=== PATIENT | female | born 1975 | race Caucasian/White ===

== ENCOUNTER 2017-03-13 01:07 | Emergency (ER) | payer OTHER ==
[~2017-03-13] VITALS: Ht 162.6 cm; Wt 63.5 kg
--- NOTE | 2017-03-13 01:20 | ED MVC/FALL/TRAUMA COMPLAINT ---
History of Present Illness General Chief Complaint: Fall Stated Complaint: RIGHT EYE BRUISE S/P FALL Source: patient, family Exam Limitations: no limitations Vital Signs & Intake/Output Vital Signs & Intake/Output Vital Signs Date Time Temp Pulse Resp B/P B/P Pulse O2 O2 Flow FiO2 Mean Ox Delivery Rate 03/13 0444 98.1 113 18 134/88 96 Room Air 03/13 0126 97.0 125 16 145/102 97 Room Air Allergies Coded Allergies: MDX - SULFA (sulfonamide) (SULFA (sulfonamide)) (UNKNOWN 08/23/12) MDX - Sulfur (UNKNOWN 08/23/12) Uncoded Allergies: Allergy Other GRASS,TREES,DUST,MOLD CLASS: 84:28 - KERATOLYTIC AGENTS (07/31/05) Reconcile Medications Prednisone 20 MG TABLET 1 TAB PO DAILY ANTI-INFLAMMATORY (Reported) Triage Nurses Notes Reviewed? yes Onset: Abrupt Duration: minute(s): Timing: recent history Severity: moderate Injuries/Fall Location: head, right noa-orbit Method of Injury: fall Loss of Consciousness: no loss of consciousness Modifying Factors: Improves With: rest. Associated Symptoms: swelling around right noa-orbit HPI: 41 yo woman h/o ulcerative colitis, on prednisone presents after a fall in the bathroom. She shares that she tripped on a box and hit her right eye on the toilet. She did not lose consciousness, and notes increased swelling around right eye. No vision loss. She notes no other injury or pain. Past History Travel History Traveled to [place] past 21 day No Medical History Any Pertinent Medical History? see below for history Gastrointestinal: colitis Surgical History Surgical History: none Psychosocial History What is your primary language Czech Family History Hx Contributory? No Review of Systems Review of Systems Constitutional: Reports: no symptoms. Eyes: Reports: no symptoms. Ears, Nose, Throat, Mouth: Reports: no symptoms. Respiratory: Reports: no symptoms. Cardiovascular: Reports: no symptoms. Gastrointestinal/Abdominal: Reports: no symptoms. Genitourinary: Reports: no symptoms. Musculoskeletal: Reports: no symptoms. Skin: Reports: no symptoms. Neurological/Psychological: Reports: no symptoms. All Other Systems: Reviewed and Negative Physical Exam Physical Exam General Appearance: well developed/nourished, anxious, mild distress Head: right noa-orbit with eccymosis, mild tenderness at maxillary sinus. Eyes: Bilateral: normal appearance, PERRL, EOMI. Ears, Nose, Throat, Mouth: hearing grossly normal, moist mucous membrane Neck: normal inspection, supple, full range of motion Respiratory: normal breath sounds, chest non-tender, no respiratory distress, quiet respiration, lungs clear Cardiovascular: regular rate/rhythm Gastrointestinal: normal bowel sounds, soft, non-tender, no organomegaly Back: normal inspection, normal range of motion Extremities: normal range of motion Neurologic/Psych: no motor/sensory deficits, awake, alert, oriented x 3 Skin: intact, normal color, warm/dry Core Measures ACS in differential dx? No CVA/TIA Diagnosis No Sepsis Present: No Sepsis Focused Exam Completed? No Progress Differential Diagnosis: C/T/L spine injury, ICH Plan of Care: Orders Procedure Date/time Status URINE 03/13 113 Complete URINALYSIS 03/13 113 Complete Laboratory Tests 03/13/17 0133: Urinalysis LIGHT H, Urine Color YEL, Urine Clarity CLDY H, Urine pH 6.0, Ur Specific Curran 1.025, Urine Protein 100 H, Urine Ketones TRACE H, Urine Nitrite NEG, Urine Bilirubin NEG, Urine Urobilinogen 0.2, Ur Leukocyte Esterase TRACE H, Ur Microscopic SEDIMENT EXAMINED, Urine RBC 10-15 H, Urine WBC 10-15 H, Ur Epithelial Cells MANY H, Urine Bacteria MANY H, Urine Mucus MANY H, Urine Hemoglobin NEG, Urine Glucose NEG, Urine Test NEGATIVE 03/13/17 0121: Urine Test Cancelled Diagnostic Imaging: Viewed by Me: CT Scan. Discussed w/RAD: CT Scan. Radiology Impression: head/cervical/maxillo facial ct.... orbital floor fx PATIENT: BIANCA CAGE PRESENT AGE: 41 PATIENT ACCOUNT NO: [id number] : 77 LOCATION: [facility] ORDERING PHYSICIAN: Jonas Prater MD SERVICE DATE: 03/13/17 EXAM TYPE: CAT - CT CERV SPINE WO IV CONTRAST; CT HEAD WO IV CONTRAST; CT MAXILLOFACIAL W/O CON EXAMINATION: NONCONTRAST HEAD CT NONCONTRAST MAXILLOFACIAL CT NONCONTRAST CERVICAL SPINE CT INDICATION INFORMATION: Fall, injury COMPARISON: None TECHNIQUE: Separate noncontrast CT examinations of the head, maxillofacial bones, and cervical spine were performed. Coronal and sagittal images were created for each examination at the technologist workstation. DLP: 1833.23 mGy-cm FINDINGS: Head: There is no evidence of acute intracranial hemorrhage or territorial infarction. No abnormal mass-effect or midline shift is seen. [place] to white matter differentiation is well preserved. No extra-axial fluid collections are identified. The ventricles are normal in size. There is no abnormal attenuation within the brain parenchyma. The osseous structures and soft tissues are normal. The mastoid air cells are well aerated. Maxillofacial: There is a moderate amount of layering hyperdense fluid in the right maxillary sinus, consistent with hemorrhage. A nondisplaced right orbital floor fracture is suspected, with mild hemorrhage noted superior to the orbital floor near the inferior rectus muscle. No herniation of orbital contents into the maxillary sinus. The lamina papyracea appear intact. No focal retrobulbar hematoma is seen. Right periorbital soft tissue swelling is present. The globe appears intact. The remaining paranasal sinuses are well aerated. There is mucosal thickening along the right infundibulum. The left infundibulum is patent. The mandibular condyles are well- seated in the condylar fossa. Cervical spine: There is anatomic alignment of the vertebral bodies and posterior elements. Vertebral body heights and intervertebral disc spaces are maintained. No evidence of acute fracture. No prevertebral soft tissue swelling. Visualized portions of the lung apices are unremarkable. The thyroid gland is unremarkable. IMPRESSION: 1. Nondisplaced right orbital floor fracture with moderate hemorrhage in the right maxillary sinus. Mild hemorrhage superior to the orbital floor adjacent to the inferior rectus muscle. Right periorbital soft tissue swelling. 2. No acute intracranial findings. 3. No acute findings of the cervical spine. Results were discussed with Dr. Prater on 03/13/2017 4:28 AM. DICTATED BY: Dwight Gongora MD DATE/ TIME DICTATED:03/13/17456 CONTAINER FINISHING INSPECTOR:SUSANNAH DATE/TIME TRANSCRIBED: 03/13/17456 CONFIDENTIAL, DO NOT COPY WITHOUT APPROPRIATE AUTHORIZATION. < Electronically signed in Other Vendor System> SIGNED BY: Dwight Gongora MD 03/13/17 0501 Departure Departure Disposition: HOME OR SELF CARE Condition: Stable Clinical Impression Primary Impression: Contusion of face Secondary Impressions: Fracture of right orbital floor Referrals: Alanna Delacruz MD (PCP/Family) Departure Forms: Customer Survey General Discharge Information Comments 03/13/17, 4:30am... feeling better... discussed at length... pt to follow up with optho. close follow up advised.
[2017-03-13] MEDS ORDERED: PREDNISONE20 M1 PO (01:28)
[2017-03-13 04:44] VITALS: BP 134/88
--- NOTE | 2017-03-13 05:01 | CT SCAN REPORT ---
EXAMINATION: NONCONTRAST HEAD CT NONCONTRAST MAXILLOFACIAL CT NONCONTRAST CERVICAL SPINE CT INDICATION INFORMATION: Fall, injury COMPARISON: None TECHNIQUE: Separate noncontrast CT examinations of the head, maxillofacial bones, and cervical spine were performed. Coronal and sagittal images were created for each examination at the technologist workstation. DLP: 1833.23 mGy-cm FINDINGS: Head: There is no evidence of acute intracranial hemorrhage or territorial infarction. No abnormal mass-effect or midline shift is seen. [place] to white matter differentiation is well preserved. No extra-axial fluid collections are identified. The ventricles are normal in size. There is no abnormal attenuation within the brain parenchyma. The osseous structures and soft tissues are normal. The mastoid air cells are well aerated. Maxillofacial: There is a moderate amount of layering hyperdense fluid in the right maxillary sinus, consistent with hemorrhage. A nondisplaced right orbital floor fracture is suspected, with mild hemorrhage noted superior to the orbital floor near the inferior rectus muscle. No herniation of orbital contents into the maxillary sinus. The lamina papyracea appear intact. No focal retrobulbar hematoma is seen. Right periorbital soft tissue swelling is present. The globe appears intact. The remaining paranasal sinuses are well aerated. There is mucosal thickening along the right infundibulum. The left infundibulum is patent. The mandibular condyles are well-seated in the condylar fossa. Cervical spine: There is anatomic alignment of the vertebral bodies and posterior elements. Vertebral body heights and intervertebral disc spaces are maintained. No evidence of acute fracture. No prevertebral soft tissue swelling. Visualized portions of the lung apices are unremarkable. The thyroid gland is unremarkable. IMPRESSION: 1. Nondisplaced right orbital floor fracture with moderate hemorrhage in the right maxillary sinus. Mild hemorrhage superior to the orbital floor adjacent to the inferior rectus muscle. Right periorbital soft tissue swelling. 2. No acute intracranial findings. 3. No acute findings of the cervical spine. Results were discussed with Dr. Prater on 03/13/2017 4:28 AM.
== END 2017-03-13 04:45 ==
LOC: ERH 01:07
DX: S02.31XA Fracture of orbital floor, right side, initial encounter for closed fracture (principal); S00.83XA Contusion of other part of head, initial encounter; W18.09XA Striking against other object with subsequent fall, initial encounter; Y92.002 Bathroom of unspecified non-institutional (private) residence as the place of occurrence of the external cause; Y93.9 Activity, unspecified
CPT/HCPCS: 81001; 81025